=== PATIENT | male | born 1985 | race American Indian/Alaskan Native ===

== ENCOUNTER 2019-10-02 03:01 | Emergency (ER) | payer SELFPAY ==
[2019-10-02 03:28] VITALS: BP 149/91
--- NOTE | 2019-10-02 04:14 | XRay Report ---
CHEST 2 VIEWS, 10/02/2019 4:04 AM INDICATION: Cough COMPARISON: None FINDINGS: Support devices: None. Heart: The cardiac silhouette is normal in size. Lungs/pleura: The lungs are well expanded and appear clear of focal airspace disease or significant p leural effusion. Additional findings: No significant acute abnormality. IMPRESSION: 1. No evidence of acute cardiopulmonary process. Signer Name: Donna Ghosh MD Signed: 10/02/2019 4:10 AM Workstation Name: [employer] [id number]
== END 2019-10-02 09:16 | disposition left against medical advice (07) ==
LOC: ED 03:01
DX: R05 Cough (principal); Z53.21 Procedure and treatment not carried out due to patient leaving prior to being seen by health care provider
CPT/HCPCS: 71046